=== PATIENT | male | born 1990 | race Caucasian/White ===

== ENCOUNTER 2020-07-05 10:18 | Observation (INO) | payer OTHER, SELFPAY ==
[2020-07-05] VITALS (25 sets, daily range): BP systolic 106–171; BP diastolic 55–99; PULSE 58–105; RESP 12–18; TEMP 36.1–37.1; O2SAT 90–100; BMI 49.4; BMI 47.9
--- NOTE | 2020-07-05 | PATH_ITS ---
[facility] Accession Number: [id number] . 01 Material submitted: . gallbladder - GALLBLADDER AND CONTENTS . 02 Diagnosis: Gallbladder, Cholecystectomy: Chronic cholecystitis with cholelithiasis. Negative for dysplasia and malignancy. V 07/08/2020 1001 Local . 02 Electronically signed: . Eladia Barrios MD, Pathologist NPI- [id number] . 01 Gross description: . The specimen is received in formalin, labeled gallbladder and consists of a 7.0 x 3.0 x 2.5 cm intact gallbladder containing green viscous bile with multiple lau, multifaceted choleliths ranging from 1.2 to 1.5 cm. The mucosa is velvety green and the wall thickness measures 0.2 cm. Garment Folder sections are submitted to include the en face cystic duct margin (blue) in cassette A1. ([id number]) /MRV 07/08/2020 1000 Local . 02 Pathologist provided ICD-10: K80.60 . 02 CPT . 820899 Performed at: 01 [facility] [address], [place], [place] [id number] MD Niraj Bach MD Phone: [phone] Performed at: 02 [facility] [address] [place], [place] [id number] MD Eladia Barrios MD Phone: [phone]
[2020-07-05 10:39] LABS: Add Manual Diff / Slide Review NO; Basophils Absolute Auto 100 /uL (0-100); Basophils Percent Auto 1.3 % (0-2); Eosinophils Absolute Auto 100 /uL (0-450); Eosinophils Percent Auto 1.6 % (2-4); Hematocrit 38.4 % (41-53); Hemoglobin 12.8 g/dL (13.5-17.5); Lymphocytes Absolute Auto 1700 /uL (1100-4500); Lymphocytes Percent Auto 19.8 % (25-40); Mean Corpuscular HGB Conc 33.3 % (30-36); Mean Corpuscular Hemoglobin 27.7 PG (26-34); Mean Corpuscular Volume 83.2 fL (80-100); Monocytes Absolute Auto 600 /uL (0-900); Monocytes Percent Auto 7.2 % (3-14); Neutrophils Absolute Auto 6200 /uL (1500-7000); Neutrophils Percent Auto 70.1 % (50-75); Platelet Count 211 X10^3/uL (150-400); Red Blood Cell Count 4.62 X10^6/uL (4.5-5.9); White Blood Cell Count 8.8 X10^3/uL (4.5-11.0)
--- NOTE | 2020-07-05 10:41 | ED.ABDPAIN ---
HPI - Abdominal Pain General Chief Complaint: Abdominal Pain Stated Complaint: stomach/gallbladder pain Time Seen by Provider: 07/05/20 10:22 Source: patient Mode of arrival: Ambulatory Limitations: no limitations History of Present Illness HPI narrative: Patient is a 29-year-old male who presents with right upper quadrant pain. He says he was diagnosed with gallstones a few years ago but nothing was done about them. He intermittently has pain however last night he had intense pain causing him to vomit. He continues to have pain and swelling over his right upper quadrant. He denies fever chills chest pain or shortness of breath. MD complaint: abdominal pain Pain Consistency: constant Location: RUQ Severity: moderate Quality: stabbing Radiation: none Migration to: no migration Relieving factors: nothing Related Data Home Medications Medication Instructions Recorded Confirmed No Known Home Medications 07/05/20 07/05/20 Allergies Allergy/AdvReac Type Severity Reaction Status Date / Time No Known Drug Allergies Allergy Verified 07/05/20 10:34 Review of Systems Review of Systems Narrative: GENERAL: Denies chills, fatigue, malaise, fever, sweats, travel HEENT: Denies sinus pain, ear pain, sore throat, difficulty swallowing, neck pain RESPIRATORY: Denies dyspnea, cough, wheezing, hemoptysis, sputum. CARDIOVASCULAR: Denies chest pain, palpitations, orthopnea, edema GASTROINTESTINAL: See HPI : Denies dysuria, frequency, incontinence, hematuria, urinary retention, flank pain. MUSCULOSKELETAL: Denies weakness, joint pain, or bony pain SKIN: No rash, no erythema, no pruritus NEUROLOGIC: Denies weakness, dizziness, headache, numbness, change in speech, confusion PSYCHIATRIC: No concerning psychosocial issues. 12 point review of systems is negative except for those stated above and HPI Patient History Medical History Cholelithiasis Social History household members: family Smoking Status: Never smoker alcohol intake: current Smoking Status: Never smoker alcohol intake frequency: 0-2 drinks per day Substance Use Type: marijuana Exam Initial Vital Signs Initial Vital Signs: Vital Signs Temperature 98.7 F 07/05/20 10:20 Pulse Rate 77 07/05/20 10:20 Respiratory Rate 18 07/05/20 10:20 Blood Pressure 171/81 H 07/05/20 10:20 Pulse Oximetry 99 07/05/20 10:20 GENERAL: Alert overweight 29-year-old male and in no acute distress. HEENT: Head atraumatic,EOMI, pupils reactive, face symmetric, moist mucous membranes CARDIOVASCULAR: Regular rate and rhythm without murmurs, rubs or gallops. RESPIRATORY: Breath sounds equal bilaterally, no wheezes rales or rhonchi. ABDOMEN: Soft, tender right upper quadrant positive Moise sign EXTREMITIES: Normal range of motion, no clubbing or edema. Neurovascularly intact NEUROLOGICAL: Alert and oriented x4.Normal gait and speech. SKIN: Warm, dry, no laceration, no petechiae, no rashes or lesions. 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) Stat Fentanyl (Fentanyl 100 Mcg/2 Ml Inj) 0 mcg IV Q5M PRN PRN Reason: Pain, Severe (7-10) Hydromorphone HCl (Hydromorphone 2 Mg Inj) 0 mg IV Q5M PRN PRN Reason: Pain, Moderate (4-6) Hydromorphone HCl (Hydromorphone 2 Mg Inj) 0 mg IV Q5MIN PRN PRN Reason: Pain, Mild (1-3) Sodium Chloride (Normal Saline 0.9%) 1,000 mls @ 150 mls/hr IV CONT JOHNNY Last Infusion: 07/05/20 12:49 Dose: 150 mls/hr Documented by: Admin: 07/05/20 12:27 Dose: 150 mls/hr Documented by: TASIA Lactated Ringer's (Lactated Ringers) 1,000 mls @ 42 mls/hr IV CONT JOHNNY Last Admin: 07/05/20 16:10 Dose: 42 mls/hr Documented by: ERIC Lorazepam (Lorazepam 2 Mg/Ml Inj) 0.25 mg IV NOW PRN PRN Reason: Anxiety Morphine Sulfate (Morphine 4 Mg/Ml Inj) 4 mg IV Q4HR PRN PRN Reason: Pain, Severe (7-10) Last Admin: 07/05/20 15:02 Dose: 4 mg Documented by: NEELA Non-Formulary Medication (Indocyanine Green) 25 mg IV PREOP JOHNNY Last Admin: 07/05/20 16:27 Dose: 5 mg Documented by: ERIC Ondansetron HCl (Ondansetron 4 Mg/2 Ml Inj) 4 mg IV NOW PRN PRN Reason: Nausea And Vomiting Oxycodone HCl (Oxycodone Ir 5 Mg Tablet) 5 mg PO PACUNOW PRN PRN Reason: Mild or moderate pain Discontinued Medications Acetaminophen (Acetaminophen 325 Mg Tablet) 975 mg PO NOW ONE Stop: 07/05/20 15:29 Last Admin: 07/05/20 15:58 Dose: 975 mg Documented by: ERIC Bupivacaine HCl/Epinephrine Bitart (Bupivacaine 0.25% W/ Epi (Pf) 10 Ml Vial) 30 ml INJ NOW ONE Stop: 07/05/20 17:45 Last Admin: 07/05/20 17:45 Dose: 30 ml Documented by: BENJAMIN Piperacillin/Tazobactam/Dextrose (Zosyn) 3.375 gm in 50 mls @ 100 mls/hr IV NOW ONE Stop: 07/05/20 12:45 Last Infusion: 07/05/20 13:12 Dose: 0 mls/hr Documented by: Infusion: 07/05/20 12:50 Dose: 100 mls/hr Documented by: Admin: 07/05/20 12:27 Dose: 100 mls/hr Documented by: TASIA Ketorolac Tromethamine (Ketorolac 60 Mg/2 Ml Vial) 30 mg IV NOW ONE Stop: 07/05/20 10:45 Last Admin: 07/05/20 11:18 Dose: 30 mg Documented by: TASIA Ondansetron HCl (Ondansetron 4 Mg/2 Ml Inj) 4 mg IV NOW ONE Stop: 07/05/20 10:32 Last Admin: 07/05/20 11:41 Dose: Not Given Documented by: TASIA Ondansetron HCl (Ondansetron 4 Mg/2 Ml Inj) 4 mg IV NOW ONE Stop: 07/05/20 10:45 Last Admin: 07/05/20 11:18 Dose: 4 mg Documented by: TASIA Vital Signs Vital signs: Vital Signs - 8 hr 07/05/20 10:20 07/05/20 10:41 07/05/20 11:00 Temperature 98.7 F Pulse Rate 77 75 65 Respiratory Rate 18 Blood Pressure 171/81 H Pulse Oximetry 99 99 99 07/05/20 11:23 07/05/20 11:30 07/05/20 12:00 Temperature Pulse Rate 77 73 86 Respiratory Rate Blood Pressure 115/57 L 106/55 L 109/56 L Pulse Oximetry 98 98 98 MDM - Abdominal Pain Lab Data Attestation: I reviewed the patient's lab results. Result diagrams: 07/05/20 10:30 07/05/20 10:30 Labs: Lab Results 07/05/20 07/05/20 07/05/20 Range/Units 10:30 10:30 10:30 WBC 8.8 (4.5-11.0) X10^3/uL RBC 4.62 (4.5-5.9) X10^6/uL Hgb 12.8 L (13.5-17.5) g/dL Hct 38.4 L (41-53) % MCV 83.2 (80-100) fL MCH 27.7 (26-34) PG MCHC 33.3 (30-36) % RDW 14.0 (11.6-14.8) % Plt Count 211 (150-400) X10^3/uL Neut % (Auto) 70.1 (50-75) % Lymph % (Auto) 19.8 L (25-40) % Granite % (Auto) 7.2 (3-14) % Eos % (Auto) 1.6 L (2-4) % Baso % (Auto) 1.3 (0-2) % Neut # (Auto) 6200 (4172-9329) /uL Lymph # (Auto) 1700 (0062-4141) /uL Granite # (Auto) 600 (0-900) /uL Eos # (Auto) 100 (0-450) /uL Baso # (Auto) 100 (0-100) /uL PT 11.6 (10.1-12.7) SECONDS INR 1.0 (0.9-1.3) APTT 37 H (26.4-36.2) SECONDS Sodium 139 (137-145) mmol/L Potassium 5.0 (3.4-5.1) mmol/L Chloride 107 (98-107) mmol/L Carbon Dioxide 22 (22-32) mmol/L BUN 8 L (9-20) mg/dL Creatinine 0.61 L (0.66-1.25) mg/dL Estimated GFR > 60.0 (>60) mL/min BUN/Creatinine Ratio 13.1 (6-22) Glucose 111 H (70-100) mg/dL Calcium 9.4 (8.4-10.2) mg/dL Total Bilirubin 0.4 (0.2-1.3) mg/dL AST 40 (17-59) IU/L ALT 44 (<50) IU/L Alkaline Phosphatase 63 (38-126) U/L Total Protein 7.9 (6.3-8.2) g/dL Albumin 4.6 (3.5-5.0) g/dL Globulin 3.3 (1.7-4.1) g/dL Albumin/Globulin Ratio 1.4 (1.0-2.8) Lipase 35 (23-300) U/L SARS-CoV-2 (PCR) (Negative) 07/05/20 Range/Units 12:28 WBC (4.5-11.0) X10^3/uL RBC (4.5-5.9) X10^6/uL Hgb (13.5-17.5) g/dL Hct (41-53) % MCV (80-100) fL MCH (26-34) PG MCHC (30-36) % RDW (11.6-14.8) % Plt Count (150-400) X10^3/uL Neut % (Auto) (50-75) % Lymph % (Auto) (25-40) % Granite % (Auto) (3-14) % Eos % (Auto) (2-4) % Baso % (Auto) (0-2) % Neut # (Auto) (9404-2316) /uL Lymph # (Auto) (2755-6422) /uL Granite # (Auto) (0-900) /uL Eos # (Auto) (0-450) /uL Baso # (Auto) (0-100) /uL PT (10.1-12.7) SECONDS INR (0.9-1.3) APTT (26.4-36.2) SECONDS Sodium (137-145) mmol/L Potassium (3.4-5.1) mmol/L Chloride (98-107) mmol/L Carbon Dioxide (22-32) mmol/L BUN (9-20) mg/dL Creatinine (0.66-1.25) mg/dL Estimated GFR (>60) mL/min BUN/Creatinine Ratio (6-22) Glucose (70-100) mg/dL Calcium (8.4-10.2) mg/dL Total Bilirubin (0.2-1.3) mg/dL AST (17-59) IU/L ALT (<50) IU/L Alkaline Phosphatase (38-126) U/L Total Protein (6.3-8.2) g/dL Albumin (3.5-5.0) g/dL Globulin (1.7-4.1) g/dL Albumin/Globulin Ratio (1.0-2.8) Lipase (23-300) U/L SARS-CoV-2 (PCR) Negative (Negative) Imaging Data Chest x-ray: Radiologist's Impression: PROCEDURE: XR CHEST 1V INDICATIONS: chest pain TECHNIQUE: One view of the chest was acquired. COMPARISON: [facility], US ABDOMEN LIMITED, 07/05/2020, 10:58. FINDINGS: Surgical changes and devices: None. Lungs and pleura: On this semiupright portable chest examination, no large pneumothorax or large pleural effusions are seen. No focal infiltrates are seen. Mediastinum: Mediastinal contours appear normal. Heart size is normal. Bones and chest wall: No suspicious bony lesions. Overlying soft tissues appear unremarkable. IMPRESSION: Portable chest within normal limits. Dictated by: Lior Miller M.D. on 07/05/2020 at 11:42 US - abdomen: Radiologist's Impression: PROCEDURE: US ABDOMEN LIMITED INDICATIONS: RIGHT UPPER QUADRANT PAIN TECHNIQUE: Real-time focused scanning was performed of the abdomen, with image documentation. COMPARISON: None. FINDINGS: The liver demonstrates prominent size. The liver demonstrates generalized prominently increased echogenicity. This decreases ultrasound sensitivity for detection of hepatic masses. Several mobile gallstones are seen, which measure up to 1.8 cm. The gallbladder wall is not thickened, measuring 3 mm or less. No specific pericholecystic fluid is seen. The sonographic Moise sign is positive. There is no biliary dilatation, the common bile duct measures 6-7 mm. The pancreas is not seen. This study is limited by body habitus. IMPRESSION: Several mobile gallstones are seen and there is a positive sonographic Moise sign. No additional sonographic signs of cholecystitis are seen. The biliary tree measures at the upper limits of normal. Prominent fatty liver infiltration. Dictated by: Lior Miller M.D. on 07/05/2020 at 10:21 ECG Data Attestation: I personally reviewed and interpreted this ECG as follows: Interpretation: Normal sinus rhythm rate 55 p.r. interval 146 QRS 90 QTC 380 MDM Narrative Medical decision making narrative: 12:15 Dr. Crisostomo, accepts patient. Keep NPO. Zosyn. Discharge Plan Departure Patient Disposition: Admitted as Observation Clinical Impression: Cholelithiasis Qualifiers: Cholelithiasis location: gallbladder Cholecystitis presence: without cholecystitis Biliary obstruction: without biliary obstruction Qualified Code(s): K80.20 - Calculus of gallbladder without cholecystitis without obstruction Admit Date/Time: 07/05/20 12:28 Admit Provider: Susana Crisostomo
--- NOTE | 2020-07-05 10:44 | DI.US.S_ITS ---
PROCEDURE: US ABDOMEN LIMITED INDICATIONS: RIGHT UPPER QUADRANT PAIN TECHNIQUE: Real-time focused scanning was performed of the abdomen, with image documentation. COMPARISON: None. FINDINGS: The liver demonstrates prominent size. The liver demonstrates generalized prominently increased echogenicity. This decreases ultrasound sensitivity for detection of hepatic masses. Several mobile gallstones are seen, which measure up to 1.8 cm. The gallbladder wall is not thickened, measuring 3 mm or less. No specific pericholecystic fluid is seen. The sonographic Moise sign is positive. There is no biliary dilatation, the common bile duct measures 6-7 mm. The pancreas is not seen. This study is limited by body habitus. IMPRESSION: Several mobile gallstones are seen and there is a positive sonographic Moise sign. No additional sonographic signs of cholecystitis are seen. The biliary tree measures at the upper limits of normal. Prominent fatty liver infiltration. Dictated by: Lior Miller M.D. on 07/05/2020 at 10:21 Approved by: Lior Miller M.D. on 07/05/2020 at 10:23
[2020-07-05 10:47] LABS: Prothrombin Time 11.6 SECONDS (10.1-12.7)
[2020-07-05 10:49] LABS: PTT Partial Thromboplastin Tim 37 SECONDS (26.4-36.2)
[2020-07-05 10:55] LABS: Alanine Aminotransferase 44 IU/L (<50); Albumin 4.6 g/dL (3.5-5.0); Albumin Globulin Ratio 1.4 (1.0-2.8); Alkaline Phosphatase 63 U/L (38-126); Aspartate Aminotransferase 40 IU/L (17-59); BUN Creatinine Ratio 13.1 (6-22); Bilirubin Total 0.4 mg/dL (0.2-1.3); Blood Urea Nitrogen 8 mg/dL (9-20); Calcium 9.4 mg/dL (8.4-10.2); Carbon Dioxide 22 mmol/L (22-32); Chloride 107 mmol/L (98-107); Estimated Glomerular Filt Rate > 60.0 mL/min (>60); Globulin 3.3 g/dL (1.7-4.1); Glucose 111 mg/dL (70-100); Lipase 35 U/L (23-300); Sodium 139 mmol/L (137-145); Total Protein 7.9 g/dL (6.3-8.2)
[2020-07-05 11:06] LABS: HEMOLYSIS 85 (0-50)
[2020-07-05] MEDS: ONDANSETRON 4 MG/2 ML INJ IV ×3 (11:18→20:41)
[2020-07-05] MEDS: KETOROLAC 60 MG/2 ML VIAL 30 MG IV (11:18)
--- NOTE | 2020-07-05 12:15 | DI.RAD.S_ITS ---
PROCEDURE: XR CHEST 1V INDICATIONS: chest pain TECHNIQUE: One view of the chest was acquired. COMPARISON: [facility], , ABDOMEN LIMITED, 07/05/2020, 10:58. FINDINGS: Surgical changes and devices: None. Lungs and pleura: On this semiupright portable chest examination, no large pneumothorax or large pleural effusions are seen. No focal infiltrates are seen. Mediastinum: Mediastinal contours appear normal. Heart size is normal. Bones and chest wall: No suspicious bony lesions. Overlying soft tissues appear unremarkable. IMPRESSION: Portable chest within normal limits. Dictated by: Lior Miller M.D. on 07/05/2020 at 11:42 Approved by: Lior Miller M.D. on 07/05/2020 at 11:43
[2020-07-05] MEDS: SODIUM CHLORIDE 0.9% 1,000 ML 150 ML IV (12:27)
[2020-07-05] MEDS: PIPERACILLIN-TAZO 3.375 GM/50 ML FROZ.PIGGY IV ×2 (12:27→18:46)
[2020-07-05 13:27] LABS: COVID19 - ADMIT (NP swab/PCR) Negative (Negative)
--- NOTE | 2020-07-05 13:56 | PC.NURSE ---
Patient alert oriented rates abdominal pain 6/10, mild nausea, no emesis. Oriented to room and call light.
--- NOTE | 2020-07-05 14:07 | PM.HP.1 ---
History of Present Illness History of Present Illness Date Patient Seen: 07/05/20 Time Patient Seen: 14:23 Chief complaint: stomach/gallbladder pain Narrative: This is a 29-year-old man with severe morbid obesity (BMI 48), who denies any other medical history. He says that he has had multiple episodes of severe right upper quadrant pain, usually self-limited, but sometimes requiring a trip to the ER. He has had ultrasounds in the past and knows he has gallstones. On this event, his right upper quadrant pain began after eating last night, and has not relented. He came into the ER had a right upper quadrant ultrasound which showed mobile gallstones, and no wall thickening or pericholecystic fluid. He has a normal white count with no left shift. His LFTs are normal. He denies any jaundice with any prior episodes, but says he has sometimes had fevers with these episodes. ROS: Right upper quadrant pain, radiating to the right upper back, denies nausea, denies fevers, denies jaundice, denies dysuria. Denies chest pain or shortness of breath. He does report some chest discomfort and shortness of breath with exertion. Thirteen system review is otherwise negative other than as mentioned below and in HPI. PE: GENERAL: Alert, comfortable, morbidly obese. Appears stated age. Answers questions promptly and appropriately. Vital signs noted. HENT: Normocephalic, atraumatic. Hearing intact. EYES: Conjunctiva pink, sclera white, no periorbital swelling. CARDIOVASCULAR: Regular rate. No pedal edema. RESPIRATORY: Non-tachypneic, breathing comfortably on room air. GASTROINTESTINAL: Abdomen soft and non-distended, obese, tender to palpation in the right upper quadrant GENITALURINARY: No flank tenderness. MUSCULOSKELETAL: Equal tone and mass bilaterally. SKIN: Warm, dry, soft, appropriate color for ethnicity. No other lesions, rashes, or wounds. NEURO: Alert and Oriented X 3. No gross sensory deficits, or cognitive issues. PSYCH: Appropriate affect and mood. Patient History Medical History Cholelithiasis Family & Social History Social History: household members family Prior Living Arrangements Apartment/Condo Safety & Behavioral: Feels Safe in Current Yes Environment Been Physically Hurt or No Threatened By a Person Suicidal Ideation Description None Suicide Plan Description No Plan Tobacco & Substance use: Smoking Status Never smoker alcohol intake current alcohol intake frequency holiday/special occasion Substance Use Type marijuana Meds Home Medications and Allergies Home Medications Medication Instructions Recorded Confirmed Type No Known Home Medications 07/05/20 07/05/20 History Allergies Allergy/AdvReac Type Severity Reaction Status Date / Time No Known Drug Allergies Allergy Verified 07/05/20 10:34 Exam Vital Signs (past 8 hours): - 07/05/20 10:20 07/05/20 10:41 07/05/20 11:00 Temperature 98.7 F Pulse Rate 77 75 65 Respiratory Rate 18 Blood Pressure 171/81 H Pulse Oximetry 99 99 99 07/05/20 11:23 07/05/20 11:30 07/05/20 12:00 Temperature Pulse Rate 77 73 86 Respiratory Rate Blood Pressure 115/57 L 106/55 L 109/56 L Pulse Oximetry 98 98 98 07/05/20 12:30 07/05/20 12:31 07/05/20 13:00 Temperature 97.7 F Pulse Rate 61 79 58 L Respiratory Rate 16 Blood Pressure 125/73 137/83 Pulse Oximetry 100 100 100 Oxygen Delivery Method Room Air Oxygen Flow Rate 0 Objective Imaging US - abdomen: Radiologist's impression: Right upper quadrant ultrasound: [address] [place] [id number] ReportSigned Patient: Domo Thompson Jr [facility]#: [id number]: 1990Acct:[id number]/Sex: 29 / MDate of Service: 07/05/20Loc: EDAccession Number: [id number] Procedure: US abdomen limited Ordering Provider: Lynn Hare D.O. PROCEDURE: US ABDOMEN LIMITED INDICATIONS: RIGHT UPPER QUADRANT PAIN TECHNIQUE: Real-time focused scanning was performed of the abdomen, with image documentation. COMPARISON: None. FINDINGS: The liver demonstrates prominent size. The liver demonstrates generalized prominently increased echogenicity. This decreases ultrasound sensitivity for detection of hepatic masses. Several mobile gallstones are seen, which measure up to 1.8 cm. The gallbladder wall is not thickened, measuring 3 mm or less. No specific pericholecystic fluid is seen. The sonographic Moise sign is positive. There is no biliary dilatation, the common bile duct measures 6-7 mm. The pancreas is not seen. This study is limited by body habitus. IMPRESSION: Several mobile gallstones are seen and there is a positive sonographic Moise sign. No additional sonographic signs of cholecystitis are seen. The biliary tree measures at the upper limits of normal. Prominent fatty liver infiltration. Labs Result Diagrams: 07/05/20 10:30 07/05/20 10:30 Labs: Laboratory Results - last 24 hr 07/05/20 07/05/20 07/05/20 10:30 10:30 10:30 WBC 8.8 RBC 4.62 Hgb 12.8 L Hct 38.4 L MCV 83.2 MCH 27.7 MCHC 33.3 RDW 14.0 Plt Count 211 Neut % (Auto) 70.1 Lymph % (Auto) 19.8 L Sevier % (Auto) 7.2 Eos % (Auto) 1.6 L Baso % (Auto) 1.3 Neut # (Auto) 6200 Lymph # (Auto) 1700 Sevier # (Auto) 600 Eos # (Auto) 100 Baso # (Auto) 100 PT 11.6 INR 1.0 APTT 37 H Sodium 139 Potassium 5.0 Chloride 107 Carbon Dioxide 22 BUN 8 L Creatinine 0.61 L Estimated GFR > 60.0 BUN/Creatinine Ratio 13.1 Glucose 111 H Calcium 9.4 Total Bilirubin 0.4 AST 40 ALT 44 Alkaline Phosphatase 63 Total Protein 7.9 Albumin 4.6 Globulin 3.3 Albumin/Globulin Ratio 1.4 Lipase 35 SARS-CoV-2 (PCR) 07/05/20 12:28 WBC RBC Hgb Hct MCV MCH MCHC RDW Plt Count Neut % (Auto) Lymph % (Auto) Sevier % (Auto) Eos % (Auto) Baso % (Auto) Neut # (Auto) Lymph # (Auto) Sevier # (Auto) Eos # (Auto) Baso # (Auto) PT INR APTT Sodium Potassium Chloride Carbon Dioxide BUN Creatinine Estimated GFR BUN/Creatinine Ratio Glucose Calcium Total Bilirubin AST ALT Alkaline Phosphatase Total Protein Albumin Globulin Albumin/Globulin Ratio Lipase SARS-CoV-2 (PCR) Negative Assessment & Plan Assessment and plan (1) Morbid obesity with BMI of 45.0-49.9, adult: Status: Acute (2) Cholelithiasis: Qualifiers: Biliary obstruction: without biliary obstruction Cholecystitis presence: without cholecystitis Cholelithiasis location: gallbladder Qualified Code(s): K80.20 - Calculus of gallbladder without cholecystitis without obstruction Status: Acute Assessment & Plan narrative: This is a 29-year-old man with intractable biliary colic, with severe right upper quadrant pain on controlled by pain medication. Have discussed with him the risk of laparoscopic possible open cholecystectomy, and the added risk due to his severe morbid obesity. I explained to him that there is a higher risk of wound infection, difficult access during surgery, need for open surgery, need for drain placement. Risk of bleeding, infection, damage to nearby structures, need for additional procedures, bile leak, bile duct injury, need for transfer to a tertiary center were discussed with the patient. The patient desires to proceed with surgery. Plan Zosyn NPO, IV fluids, IV pain Laparoscopic possible open cholecystectomy COVID-19 COVID-19 status: Negative Result date/Date tested (Pos, Neg/Pending): 07/05/20 Time Spent With Patient Time with patient: Greater than 35 minutes Quality MIPS - Admit Advanced Care Plan / Current Medications Measures: #47 ? Advanced Care Plan Clinician documentation instruction: document at admission. [] I confirmed that the patient's Advance Care Plan is present, code status is documented, or surrogate decision maker is listed in the patient?s medical record. [SATISFIES MIPS PERFORMANCE] If Yes, Stop Here [] The patient?s Advance Care plan is not present because: (select) [MIPS PERFORMANCE EXCEPTION/EXCLUSION] [] I confirmed today that the patient does not wish or was not able to name a surrogate decision maker or provide an Advance Care Plan. [] Hospice care is currently being provided or has been provided this calendar year [] I did NOT confirm today the presence of an Advance Care Plan or surrogate decision maker documented within the patient's medical record. [DOES NOT SATISFY MIPS PERFORMANCE] #130 - Documentation of Current Medications in the Medical Record Clinician documentation instruction: use macro the first time you see a patient. [] I have utilized all available immediate resources to obtain, update, or review the patient?s current medications. [SATISFIES MIPS PERFORMANCE] If Yes, Stop Here [] The patient is not eligible for medication reconciliation; the patient is in an emergent medical situation where delaying treatment would jeopardize the patient?s health. [MIPS PERFORMANCE EXCEPTION/EXCLUSION] [] I did NOT confirm, update or review the patient's current list of medications today. [DOES NOT SATISFY MIPS PERFORMANCE] MIPS - CL Central Venous Catheter Placement Measure: #76 ? Prevention of Central Venous Catheter (CVC) ? Related Bloodstream Infection Clinician documentation instruction: use macro every time you place a central line. [] All elements of Maximal Sterile Barrier Technique, including hand hygiene, skin prep, and sterile ultrasound technique (if used) were followed. [SATISFIES MIPS PERFORMANCE] If Yes, Stop Here [] If ?No?, the medical reason all elements were NOT used for medical reason [] (ex. emergent condition). [] Maximal Sterile Barrier Technique was not followed, no reason provided [DOES NOT SATISFY MIPS PERFORMANCE] MIPS - DC Heart Failure Measures: #5 - Heart Failure (HF): Angiotensin-Converting Enzyme (LUIS) Inhibitor or Angiotensin Receptor Priscila (ARB) Therapy for Left Ventricular Systolic Dysfunction (LVSD) and #8 - Heart Failure (HF): Beta-Priscila Therapy for Left Ventricular Systolic Dysfunction (LVSD) Clinician documentation instruction: use macro at every CHF discharge. [] The patient has current or prior documentation of left ventricular ejection fraction (LVEF) less than 40%, or moderate or severely depressed left ventricular systolic function. Answer both: [SATISFIES MIPS PERFORMANCE] [] The patient was prescribed or already taking an Angiotensin-Converting Enzyme (LUIS) Inhibitor, or Angiotensin Receptor Priscila (ARB). [] The patient was prescribed or already taking a beta-priscila. If Yes to Both, Stop Here [] Patient not prescribed/taking: [MIPS PERFORMANCE EXCEPTION/EXCLUSION] [] LUIS or ARB for medical/patient/system reason(s) including [] (ex. allergy, intolerance, contraindication) [] Beta-priscila for medical/patient/system reason(s) including [] (ex. allergy, intolerance, contraindication) [] Patient not prescribed/taking: [DOES NOT SATISFY MIPS PERFORMANCE] [] LUIS or ARB, no reason given [] Beta-priscila, no reason given
[2020-07-05] MEDS: MORPHINE 4 MG/ML INJ IV (15:02)
[2020-07-05] MEDS: ACETAMINOPHEN 325 MG TABLET 975 MG PO (15:58)
[2020-07-05] MEDS: LACTATED RINGERS 1,000 ML 42 ML IV ×2 (16:10→18:21)
[2020-07-05 16:23] LABS: Bacteria Urine None Seen; RBC Urine None Seen (0-5/HPF)
[2020-07-05 16:26] LABS: Appearance Urine UA CLEAR; Bilirubin Urine UA NEGATIVE (NEGATIVE); Color Urine UA YELLOW; Glucose Urine UA NEGATIVE (Negative); Ketones Urine UA NEGATIVE (NEGATIVE); Leukocyte Esterase Urine UA NEGATIVE (NEGATIVE); Nitrite Urine UA NEGATIVE (Negative); Occult Blood Urine UA NEGATIVE (Negative); Protein Urine UA NEGATIVE (Negative); Specific Gravity Urine UA 1.025 (1.000-1.035); Urobilinogen Urine UA 0.2 E.U./dL (0.2)
[2020-07-05] MEDS: Non-Formulary Medication (Indocyanine Green 25 MG) 25 EACH IV (16:27)
[2020-07-05 16:34] LABS: Amorphous Sediment Urine 1+; Culture Indicated Urine Cult Not Indicated; Mucus Urine 1+ (Negative); Squamous Epithelial Cell Urine 1-5 /HPF (0-5/HPF); WBC Urine 0-1/HPF (0-5/HPF)
--- NOTE | 2020-07-05 17:22 | SUR.OPER ---
Supine on padded OR bed, head on pillow, safety belt at thigh, left arm padded and tucked at side. Right arm secured on padded arm oard <90 degrees abduction. Legs uncrossed. Padded footboard in place. Tape over blanket to secure lower legs.
[2020-07-05] MEDS: BUPIVACAINE 0.25% W/ EPI (PF) 10 ML VIAL 30 ML INJ (17:45)
--- NOTE | 2020-07-05 19:04 | P.OP_ITS ---
Operative Date/Time/Diagnoses Date of procedure: 07/05/20 Time of procedure: 19:04 Pre-op diagnosis: acute cholecystitis, biliary colic, intractable abdominal pain Post-op diagnosis: same (acute on chronic cholecystitis, gall stones; deeply intrahepatic gall bladder) Procedure & Clinicians Procedure: Laparoscopic cholecystectomy Indocyanine green cholangiography Modifier 22 for deeply intrahepatic gall bladder, resulting in extended operative time and increased complexity Same procedure as scheduled: Yes Indications: Symptomatic cholelithiasis, intractable biliary colic Surgeon: Susana Crisostomo Click Yes if Unassisted: Yes Anesthesia Type: General Operative Notes Findings: Thickend gall bladder, large gall stones, deeply intrahepatic gall bladder Specimen(s): other (gall bladder and contents) Applied: drain(s) Estimated Blood Loss (mL): 50 Procedure in detail: The patient was brought into the operating room and placed supine on the OR table. Sequential compression devices were placed on both legs and turned on. Appropriate perioperative antibiotics were given prior to the start of surgery. General anesthesia was induced the patient was intubated. The abdomen was prepped and draped in sterile fashion. Surgical time-out was conducted. Local anesthetic was injected under the skin just superior to the umbilicus and a 5 mm vertical incision was made at this site. The umbilical stalk was grasped with a Becky and elevated. A Veress needle was passed throu gh the fascia into proper position. The position was tested with a saline drop test which was appropriate for intra-abdominal Veress needle placement. The abdomen was then insufflated in the usual fashion. Once insufflated to 15 mm Hg the Veress needle was removed and a 5 mm optical trocar was placed under direct vision using a 5 mm 30 degree scope. Once the camera was inside the abdomen I took a look around. There was no injury from port placement. Two additional ports were placed in a similar fashion in the right upper quadrant and a 10 mm port was placed in the epigastrium. Through the 2 lateral ports the gallbladder was grasped and elevated and the infundibulum was retracted laterally to the patient's right. The gall bladder was deeply intra-hepatic. Through positioning, access to the gall bladder hilum was not achievable due to the deeply intrahepatic position of the gall bladder. The liver was very fatty and heavy. Lifting the liver away from the gall bladder was difficult with high risk of injury to the liver. The decision was made to take the gall bladder from the top down. A Raytec was placed into the abdomen and it was used to protect the anterior edge of the liver while retracting upwards on the liver. L-hook cautery was used to open the peritoneum and to begin dividing the gall bladder fundus from the liver beginning at its most superior extent, and carefully dissecting down along the posterior surface of the gall bladder in the plane between the gall bladder and the liver. Several penetrating vessels were encountered and were controlled with clips and cautery. This part of the procedure added over 45 minutes to the operation, due to patient anatomy. Modifier 22 should be included in the coding for this case due to increased operative time, and increased level of skill and difficulty required to complete this part of the operation safely. Once the gall bladder was freed from the liver surface, I again lifted the gall bladder and attempted to retract the infundibulum laterally again and to see the hilum. At this point, I was able to get the gall bladder away from the liver enough to address the cystic duct and artery. There was thick fatty tissue on the surface of the infundibulum and cystic structures. These were carefully taken down with hook cautery. Indocyanine green cholangiography was used to identify the cystic duct and common bile duct. Both were clearly identified, and the common bile duct was seen well away from the area of dissection. [place] dissector and right angle were used to dissect out the cystic duct and artery. Once the cystic duct and artery were completely dissected out I was able to see liver behind and between both structures without any other structures in the way, giving us the critical view of safety. I again checked the view using ICG and was able to identify the anterior structure as the cytic duct. At this point I triply clipped both structures on the patient's side and put a single clip on the gallbladder side of both the cystic duct and artery. Both structures were then divided with laparoscopic Meseret. The few remaining adhesions were taken down with hook cautery. Following this the gallbladder was free from the liver. It was placed inside an Endo-Catch bag and removed through the epigastric port site. Due to the thickness of the abdominal wall (about 8cm thick), and the large stones within the gall bladder, I had to signficantly enlarge the epigastric port site in order to get the gallbladder out. Once it was out and passed off to the back table I then took another look inside the abdomen. I irrigated and inspected the gall bladder hilum for hemostasis. An additional clip was applied to an oozing vessel in the gall bladder hilum, and surgicel was used to achieve good hemostasis I suctioned clean any remaining blood or fluid on the lateral side of the liver and in the subhepatic space. The Raytec was removed. There was no active bleeding or leaking of bile from the gallbladder fossa or from the clipped stumps of the cystic duct and artery. A 19 round roge drain was placed through the lateral port site and positioned in an infrahepatic po sition. At this point an O vicryl on a [employer] suture passer was used to close the epigastric port site in the fascia with multiple sutures. Insufflation was then removed from the abdomen. Additional local anesthetic was given at the epigastric site. A 3-0 Vicryl was used to close the subcutaneous layers, and skin sachin were used to close the skin. Additional local anesthetic was infiltrated into each port site. Each other port site was closed with 4-0 Monocryl, and sealed with Dermabond. This concluded the procedure. At this point the needle, sponge, and instrument counts were correct. The gallbladder was passed off the table for pathology. Patient was awakened from anesthesia and extubated. He was transferred to the postanesthesia care unit in stable condition. Complications: none Post-operative Condition: stable Disposition: PACU
--- NOTE | 2020-07-05 19:37 | SUR.PHASEI ---
received to PACU after general anesthesia. Oral airway in place. No further airway support required. Report from AMBROCIO Garcia and Dr Allan. 1915 - Oral airway out. No resp distress noted. 1939 - Pt diaphoretic. c/o nausea. Zofran given as noted. IVF increased. Ice pack placed behind neck. 1950 _ Pt states nausea much better. Remains diaphoretic. VSS. Denies pain.
--- NOTE | 2020-07-05 20:00 | SUR.PHASEI ---
1944 - Receiving RN in with another pt. Will wait to give report.
[2020-07-05] MEDS: HYDROMORPHONE 1 MG INJ 0.5 MG IV (20:41)
--- NOTE | 2020-07-05 21:45 | PC.NURSE ---
Shift note: Patient returned to floor around 2019, dressing to upper abdomen CDI, 2 incisions dermabonded and OIL FURNACE INSTALLER, MAHI drain with gauze dressing CDI . Patient c/o nausea with emesis, bile in color, medicated per JUN. Oriented to room, call light in reach and uses appropriately.
[2020-07-05] MEDS: ACETAMINOPHEN 325 MG TABLET 650 MG PO (23:54)
[2020-07-06] VITALS (8 sets, daily range): BP systolic 133–151; BP diastolic 54–90; PULSE 65–94; RESP 15–20; TEMP 36.2–37; O2SAT 94–98
[2020-07-06] MEDS: SODIUM CHLORIDE 0.9% FLUSH 10 ML IV ×3 (01:07→20:32)
[2020-07-06] MEDS: HYDROMORPHONE 0.5 MG INJ IV ×3 (01:07→20:32)
[2020-07-06] MEDS: OXYCODONE IR 5 MG TABLET PO (05:14)
[2020-07-06] MEDS: ACETAMINOPHEN 325 MG TABLET 650 MG PO ×4 (05:15→23:27)
[2020-07-06 05:31] LABS: Add Manual Diff / Slide Review NO; Basophils Absolute Auto 100 /uL (0-100); Basophils Percent Auto 0.7 % (0-2); Eosinophils Absolute Auto 0 /uL (0-450); Hematocrit 38.1 % (41-53); Hemoglobin 12.6 g/dL (13.5-17.5); Lymphocytes Absolute Auto 1000 /uL (1100-4500); Lymphocytes Percent Auto 7.6 % (25-40); Mean Corpuscular Hemoglobin 27.8 PG (26-34); Monocytes Absolute Auto 300 /uL (0-900); Monocytes Percent Auto 2.7 % (3-14); Neutrophils Absolute Auto 11200 /uL (1500-7000); Platelet Count 228 X10^3/uL (150-400); Red Blood Cell Count 4.54 X10^6/uL (4.5-5.9); Red Cell Distribution Width 13.9 % (11.6-14.8); White Blood Cell Count 12.6 X10^3/uL (4.5-11.0)
[2020-07-06 05:37] LABS: Alanine Aminotransferase 70 IU/L (<50); Albumin 4.4 g/dL (3.5-5.0); Albumin Globulin Ratio 1.5 (1.0-2.8); Alkaline Phosphatase 62 U/L (38-126); Aspartate Aminotransferase 54 IU/L (17-59); BUN Creatinine Ratio 15.2 (6-22); Bilirubin Total 0.5 mg/dL (0.2-1.3); Blood Urea Nitrogen 10 mg/dL (9-20); Carbon Dioxide 23 mmol/L (22-32); Chloride 104 mmol/L (98-107); Estimated Glomerular Filt Rate > 60.0 mL/min (>60); Glucose 140 mg/dL (70-100); HEMOLYSIS < 15 (0-50); Sodium 138 mmol/L (137-145); Total Protein 7.4 g/dL (6.3-8.2)
[2020-07-06] MEDS: ONDANSETRON 4 MG/2 ML INJ IV (07:45)
[2020-07-06] MEDS: HEPARIN 5,000 UNIT/ML VIAL 5000 UNIT SUBCUT ×2 (09:06→22:40)
--- NOTE | 2020-07-06 10:39 | P.PN_ITS ---
Subjective Subjective Date Patient Seen: 07/06/20 Time Patient Seen: 11:41 Interval history: Patient having a significant amount of pain, has not been able to ambulate well without being limited by pain. Complains of diaphoresis. Was able tolerate food, without nausea or vomiting. Exam Vital Signs (past 8 hours): - 07/06/20 05:20 07/06/20 06:03 07/06/20 07:37 Temperature 97.8 F 97.7 F Pulse Rate 73 94 H Respiratory Rate 18 15 Blood Pressure 136/81 136/81 Pulse Oximetry 94 94 94 07/06/20 09:00 Temperature Pulse Rate 75 Respiratory Rate 18 Blood Pressure Pulse Oximetry 98 Oxygen Delivery Method Room Air Oxygen Flow Rate 0 Narrative Exam Narrative: GENERAL: Morbidly obese. Alert, mild distress due to pain and diaphoresis CARDIOVASCULAR: Regular rate. No pedal edema. RESPIRATORY: Non-tachypneic, breathing comfortably on room air. GASTROINTESTINAL: Abdomen soft and non-distended; appropriately tender to palpation; MAHI drain with serosanguineous output GENITALURINARY: No flank tenderness. MUSCULOSKELETAL: Equal tone and mass bilaterally. NEURO: Alert and Oriented X 3. No gross sensory deficits, or cognitive issues. PSYCH: Appropriate affect and mood. Objective Labs Result Diagrams: 07/06/20 05:10 07/06/20 05:10 Labs: Laboratory Results - last 24 hr 07/05/20 07/05/20 07/05/20 10:30 10:30 10:30 WBC 8.8 RBC 4.62 Hgb 12.8 L Hct 38.4 L MCV 83.2 MCH 27.7 MCHC 33.3 RDW 14.0 Plt Count 211 Neut % (Auto) 70.1 Lymph % (Auto) 19.8 L [place] % (Auto) 7.2 Eos % (Auto) 1.6 L Baso % (Auto) 1.3 Neut # (Auto) 6200 Lymph # (Auto) 1700 [place] # (Auto) 600 Eos # (Auto) 100 Baso # (Auto) 100 PT 11.6 INR 1.0 APTT 37 H Sodium 139 Potassium 5.0 Chloride 107 Carbon Dioxide 22 BUN 8 L Creatinine 0.61 L Estimated GFR > 60.0 BUN/Creatinine Ratio 13.1 Glucose 111 H Calcium 9.4 Total Bilirubin 0.4 AST 40 ALT 44 Alkaline Phosphatase 63 Total Protein 7.9 Albumin 4.6 Globulin 3.3 Albumin/Globulin Ratio 1.4 Lipase 35 Urine Color Urine Appearance Urine pH Ur Specific [place] Urine Protein Urine Glucose (UA) Urine Ketones Urine Occult Blood Urine Nitrate Urine Bilirubin Urine Urobilinogen Ur Leukocyte Esterase Urine RBC Urine WBC Ur Squamous Epith Cells Amorphous Sediment Urine Bacteria Urine Mucus Ur Culture Indicated? Nasal Screen MRSA (PCR) SARS-CoV-2 (PCR) 07/05/20 07/05/20 07/05/20 12:28 13:15 16:15 WBC RBC Hgb Hct MCV MCH MCHC RDW Plt Count Neut % (Auto) Lymph % (Auto) [place] % (Auto) Eos % (Auto) Baso % (Auto) Neut # (Auto) Lymph # (Auto) [place] # (Auto) Eos # (Auto) Baso # (Auto) PT INR APTT Sodium Potassium Chloride Carbon Dioxide BUN Creatinine Estimated GFR BUN/Creatinine Ratio Glucose Calcium Total Bilirubin AST ALT Alkaline Phosphatase Total Protein Albumin Globulin Albumin/Globulin Ratio Lipase Urine Color Yellow Urine Appearance Clear Urine pH 6.0 Ur Specific [place] 1.025 Urine Protein Negative Urine Glucose (UA) Negative Urine Ketones Negative Urine Occult Blood Negative Urine Nitrate Negative Urine Bilirubin Negative Urine Urobilinogen 0.2 Ur Leukocyte Esterase Negative Urine RBC None seen Urine WBC 0-1/hpf Ur Squamous Epith Cells 1-5 /hpf Amorphous Sediment 1+ Urine Bacteria None seen Urine Mucus 1+ H Ur Culture Indicated? Cult not indicated Nasal Screen MRSA (PCR) Negative for mrsa SARS-CoV-2 (PCR) Negative 07/06/20 07/06/20 05:10 05:10 WBC 12.6 H RBC 4.54 Hgb 12.6 L Hct 38.1 L MCV 84.0 MCH 27.8 MCHC 33.0 RDW 13.9 Plt Count 228 Neut % (Auto) 89.0 H Lymph % (Auto) 7.6 L [place] % (Auto) 2.7 L Eos % (Auto) 0.0 L Baso % (Auto) 0.7 Neut # (Auto) 36356 H Lymph # (Auto) 1000 L [place] # (Auto) 300 Eos # (Auto) 0 Baso # (Auto) 100 PT INR APTT Sodium 138 Potassium 5.0 Chloride 104 Carbon Dioxide 23 BUN 10 Creatinine 0.66 Estimated GFR > 60.0 BUN/Creatinine Ratio 15.2 Glucose 140 H Calcium 9.0 Total Bilirubin 0.5 AST 54 ALT 70 H Alkaline Phosphatase 62 Total Protein 7.4 Albumin 4.4 Globulin 3.0 Albumin/Globulin Ratio 1.5 Lipase Urine Color Urine Appearance Urine pH Ur Specific [place] Urine Protein Urine Glucose (UA) Urine Ketones Urine Occult Blood Urine Nitrate Urine Bilirubin Urine Urobilinogen Ur Leukocyte Esterase Urine RBC Urine WBC Ur Squamous Epith Cells Amorphous Sediment Urine Bacteria Urine Mucus Ur Culture Indicated? Nasal Screen MRSA (PCR) SARS-CoV-2 (PCR) [facility] Medical History Cholelithiasis Social History household members: family Smoking Status: Never smoker alcohol intake: current Assessment & Plan Assessment and plan (1) Morbid obesity with BMI of 45.0-49.9, adult: Status: Acute (2) Cholelithiasis: Qualifiers: Biliary obstruction: without biliary obstruction Cholecystitis presence: without cholecystitis Cholelithiasis location: gallbladder Qualified Code(s): K80.20 - Calculus of gallbladder without cholecystitis without obstruction Status: Acute (3) Status post cholecystectomy: Status: Acute Assessment & Plan narrative: This is a 29-year-old man who is postop day 1 from a difficult cholecystectomy, with a deeply intrahepatic gallbladder. He is still having some significant pain, and difficulty with ambulation due to pain. Plan: Ambulate as tolerated Pain control p.o. and IV pain med Dispo planning pending patient is able to ambulate well, and pain is controlled with p.o. pain meds COVID-19 COVID-19 status: Negative Result date/Date tested (Pos, Neg/Pending): 07/05/20 Time Spent With Patient Time with patient: 15-24 minutes Quality VTE Deep Vein Thrombosis/Pulmonary Embolism Present on Admission: No MIPS - Admit Advanced Care Plan / Current Medications Measures: #47 ? Advanced Care Plan Clinician documentation instruction: document at admission. [] I confirmed that the patient's Advance Care Plan is present, code status is documented, or surrogate decision maker is listed in the patient?s medical record. [SATISFIES [facility] PERFORMANCE] If Yes, Stop Here [] The patient?s Advance Care plan is not present because: (select) [MIPS PERFORMANCE EXCEPTION/EXCLUSION] [] I confirmed today that the patient does not wish or was not able to name a surrogate decision maker or provide an Advance Care Plan. [] Hospice care is currently being provided or has been provided this calendar year [] I did NOT confirm today the presence of an Advance Care Plan or surrogate decision maker documented within the patient's medical record. [DOES NOT SATISFY MIPS PERFORMANCE] #130 - Documentation of Current Medications in the Medical Record Clinician documentation instruction: use macro the first time you see a patient. [] I have utilized all available immediate resources to obtain, update, or review the patient?s current medications. [SATISFIES MIPS PERFORMANCE] If Yes, Stop Here [] The patient is not eligible for medication reconciliation; the patient is in an emergent medical situation where delaying treatment would jeopardize the patient?s health. [MIPS PERFORMANCE EXCEPTION/EXCLUSION] [] I did NOT confirm, update or review the patient's current list of medications today. [DOES NOT SATISFY MIPS PERFORMANCE] MIPS - CL Central Venous Catheter Placement Measure: #76 ? Prevention of Central Venous Catheter (CVC) ? Related Bloodstream Infection Clinician documentation instruction: use macro every time you place a central line. [] All elements of Maximal Sterile Barrier Technique, including hand hygiene, skin prep, and sterile ultrasound technique (if used) were followed. [SATISFIES MIPS PERFORMANCE] If Yes, Stop Here [] If ?No?, the medical reason all elements were NOT used for medical reason [] (ex. emergent condition). [] Maximal Sterile Barrier Technique was not followed, no reason provided [DOES NOT SATISFY MIPS PERFORMANCE] MIPS - DC Heart Failure Measures: #5 - Heart Failure (HF): Angiotensin-Converting Enzyme (LUIS) Inhibitor or Angiotensin Receptor Priscila (ARB) Therapy for Left Ventricular Systolic Dysfunction (LVSD) and #8 - Heart Failure (HF): Beta-Priscila Therapy for Left Ventricular Systolic Dysfunction (LVSD) Clinician documentation instruction: use macro at every CHF discharge. [] The patient has current or prior documentation of left ventricular ejection fraction (LVEF) less than 40%, or moderate or severely depressed left ventricular systolic function. Answer both: [SATISFIES MIPS PERFORMANCE] [] The patient was prescribed or already taking an Angiotensin-Converting Enzyme (LUIS) Inhibitor, or Angiotensin Receptor Priscila (ARB). [] The patient was prescribed or already taking a beta-priscila. If Yes to Both, Stop Here [] Patient not prescribed/taking: [MIPS PERFORMANCE EXCEPTION/EXCLUSION] [] LUIS or ARB for medical/patient/system reason(s) including [] (ex. allergy, intolerance, contraindication) [] Beta-priscila for medical/patient/system reason(s) including [] (ex. allergy, intolerance, contraindication) [] Patient not prescribed/taking: [DOES NOT SATISFY MIPS PERFORMANCE] [] LUIS or ARB, no reason given [] Beta-priscila, no reason given
--- NOTE | 2020-07-06 10:48 | CM.DANOTE ---
DCP: Case received, EMR reviewed and met with patient. Introduced self and role. Was able to obtain information from patient regarding his baseline activity status, as well as his current living situation prior to hospitalization. DCP assessment completed with information currently available. Patient is a 29 year old male who admitted yesterday afternoon to the care of the hospitalist/surgical team. PCP: [facility], has been assigned new provider, could not remember the name. Payer: confirmed: [facility]. Patient came to the hospital via private vehicle secondary to having left lower quadrant discomfort. Patient was diagnosed with cholecystitis. He had a laparoscopic cholecystectomy yesterday. Met with patient in his room. He was sitting up in his chair, pleasant. He resides in [place] with parents. He is independent at his baseline, he is employed at [email or web address], and works in [email or web address]. Asked him if he has a primary care provider, and he indicated that he has an appointment with a provider at [facility] after going to the walk in clinic to get established, but was unclear of the name. Patient also indicated that his father is at [facility], and could be released today. He stated that he also helps his grand parents, gets them set up for meals before he goes to work. Stated that his mother should be picking him up when he is ready for discharge. P: DCP to continue to follow. Plan is for home when he is deemed medically stable. Lisa Recio RN/[employer] Plant [employer]per
[2020-07-06] MEDS: OXYCODONE IR 10 MG TABLET PO ×4 (10:50→22:40)
[2020-07-06] MEDS: DOCUSATE 100 MG CAPSULE PO ×2 (14:09→20:32)
[2020-07-07 05:03] VITALS: BP 135/77; PULSE 70; RESP 18; TEMP 36.4; O2SAT 97
[2020-07-07] MEDS: OXYCODONE IR 10 MG TABLET PO (05:04)
[2020-07-07] MEDS: ACETAMINOPHEN 325 MG TABLET 650 MG PO ×2 (05:04→11:28)
[2020-07-07 05:27] LABS: Add Manual Diff / Slide Review NO; Basophils Absolute Auto 100 /uL (0-100); Basophils Percent Auto 0.7 % (0-2); Eosinophils Absolute Auto 100 /uL (0-450); Eosinophils Percent Auto 0.6 % (2-4); Hematocrit 36.2 % (41-53); Lymphocytes Absolute Auto 2500 /uL (1100-4500); Lymphocytes Percent Auto 24.2 % (25-40); Mean Corpuscular HGB Conc 33.3 % (30-36); Monocytes Absolute Auto 700 /uL (0-900); Monocytes Percent Auto 6.9 % (3-14); Neutrophils Absolute Auto 7000 /uL (1500-7000); Neutrophils Percent Auto 67.6 % (50-75); Platelet Count 217 X10^3/uL (150-400); Red Blood Cell Count 4.31 X10^6/uL (4.5-5.9); Red Cell Distribution Width 14.3 % (11.6-14.8); White Blood Cell Count 10.3 X10^3/uL (4.5-11.0)
[2020-07-07] MEDS: HEPARIN 5,000 UNIT/ML VIAL 5000 UNIT SUBCUT ×2 (06:27→13:50)
[2020-07-07] MEDS: HYDROMORPHONE 0.5 MG INJ IV (06:37)
[2020-07-07 08:00] VITALS: BP 135/71; PULSE 88; RESP 17; TEMP 36.3; O2SAT 97
[2020-07-07] MEDS: DOCUSATE 100 MG CAPSULE PO (08:42)
[2020-07-07] MEDS: SODIUM CHLORIDE 0.9% FLUSH 10 ML IV (08:42)
[2020-07-07] MEDS: polyethylene glycoL 3350 17 GM POWD.PACK PO (09:30)
[2020-07-07] MEDS: HYDROMORPHONE 2 MG TABLET PO ×2 (09:30→13:50)
--- NOTE | 2020-07-07 09:54 | P.PN_ITS ---
Subjective Subjective Date Patient Seen: 07/06/20 Time Patient Seen: 11:41 Interval history: Patient is still having a significant amount of pain in the epigastrium and right upper quadrant, has not been able to ambulate well without being limited by pain. Still requiring IV pain meds. Has not able to tolerate food without nausea or vomiting. Passing gas, but no stool. Exam Vital Signs (past 8 hours): - 07/07/20 05:03 07/07/20 08:00 Temperature 97.5 F L 97.3 F L Pulse Rate 70 88 Respiratory Rate 18 17 Blood Pressure 135/77 135/71 Pulse Oximetry 97 97 Oxygen Delivery Method Room Air Oxygen Flow Rate 0 Narrative Exam Narrative: GENERAL: Morbidly obese. Alert, mild distress due to pain and diaphoresis CARDIOVASCULAR: Regular rate. No pedal edema. RESPIRATORY: Non-tachypneic, breathing comfortably on room air. GASTROINTESTINAL: Abdomen soft and non-distended; appropriately tender to palpation; MAHI drain with clear, non bilious serosanguineous output; MAHI drain removed during exam GENITALURINARY: No flank tenderness. MUSCULOSKELETAL: Equal tone and mass bilaterally. NEURO: Alert and Oriented X 3. No gross sensory deficits, or cognitive issues. PSYCH: Appropriate affect and mood. Objective Labs Result Diagrams: 07/07/20 05:13 07/06/20 05:10 Labs: Laboratory Results - last 24 hr 07/07/20 05:13 WBC 10.3 RBC 4.31 L Hgb 12.0 L Hct 36.2 L MCV 84.0 MCH 28.0 MCHC 33.3 RDW 14.3 Plt Count 217 Neut % (Auto) 67.6 D Lymph % (Auto) 24.2 L [place] % (Auto) 6.9 Eos % (Auto) 0.6 L Baso % (Auto) 0.7 Neut # (Auto) 7000 Lymph # (Auto) 2500 [place] # (Auto) 700 Eos # (Auto) 100 Baso # (Auto) 100 [facility] Medical History Cholelithiasis Social History household members: family Smoking Status: Never smoker alcohol intake: current Assessment & Plan Assessment and plan (1) Status post cholecystectomy: Status: Acute (2) Morbid obesity with BMI of 45.0-49.9, adult: Status: Acute (3) Post-operative pain: Status: Acute (4) Cholelithiasis: Qualifiers: Biliary obstruction: without biliary obstruction Cholecystitis presence: without cholecystitis Cholelithiasis location: gallbladder Qualified Code(s): K80.20 - Calculus of gallbladder without cholecystitis without obs truction Status: Acute Assessment & Plan narrative: This is a 29-year-old man who is postop day 2 from a difficult cholecystectomy, with a deeply intrahepatic gallbladder. Although his pain meds were increased, they are not controlling his pain well. We will change to dilaudid PO, and remove the drain. We will increase his bowel regimen and encourage more ambulation. Once he is doing well enough without IV pain med s, he can be discharged. Plan: Encourage ambulation Change PO pain med PRN IV pain med if needed Dispo planning pending patient is able to ambulate well, and pain is controlled with p.o. pain meds COVID-19 COVID-19 status: Negative Result date/Date tested (Pos, Neg/Pending): 07/05/20 Time Spent With Patient Time with patient: 15-24 minutes Quality VTE Deep Vein Thrombosis/Pulmonary Embolism Present on Admission: No MIPS - Admit Advanced Care Plan / Current Medications Measures: #47 ? Advanced Care Plan Clinician documentation instruction: document at admission. [] I confirmed that the patient's Advance Care Plan is present, code status is documented, or surrogate decision maker is listed in the patient?s medical record. [SATISFIES MIPS PERFORMANCE] If Yes, Stop Here [] The patient?s Advance Care plan is not present because: (select) [MIPS PERFORMANCE EXCEPTION/EXCLUSION] [] I confirmed today that the patient does not wish or was not able to name a surrogate decision maker or provide an Advance Care Plan. [] Hospice care is currently being provided or has been provided this calendar year [] I did NOT confirm today the presence of an Advance Care Plan or surrogate decision maker documented within the patient's medical record. [DOES NOT SATISFY MIPS PERFORMANCE] #130 - Documentation of Current Medications in the Medical Record Clinician documentation instruction: use macro the first time you see a patient. [] I have utilized all available immediate resources to obtain, update, or review the patient?s current medications. [SATISFIES MIPS PERFORMANCE] If Yes, Stop Here [] The patient is not eligible for medication reconciliation; the patient is in an emergent medical situation where delaying treatment would jeopardize the patient?s health. [MIPS PERFORMANCE EXCEPTION/EXCLUSION] [] I did NOT confirm, update or review the patient's current list of medications today. [DOES NOT SATISFY MIPS PERFORMANCE] MIPS - CL Central Venous Catheter Placement Measure: #76 ? Prevention of Central Venous Catheter (CVC) ? Related Bloodstream Infection Clinician documentation instruction: use macro every time you place a central line. [] All elements of Maximal Sterile Barrier Technique, including hand hygiene, skin prep, and sterile ultrasound technique (if used) were followed. [SATISFIES MIPS PERFORMANCE] If Yes, Stop Here [] If ?No?, the medical reason all elements were NOT used for medical reason [] (ex. emergent condition). [] Maximal Sterile Barrier Technique was not followed, no reason provided [DOES NOT SATISFY MIPS PERFORMANCE] MIPS - DC Heart Failure Measures: #5 - Heart Failure (HF): Angiotensin-Converting Enzyme (LUIS) Inhibitor or Angiotensin Receptor Priscila (ARB) Therapy for Left Ventricular Systolic Dysfunction (LVSD) and #8 - Heart Failure (HF): Beta-Priscila Therapy for Left Ventricular Systolic Dysfunction (LVSD) Clinician documentation instruction: use macro at every CHF discharge. [] The patient has current or prior documentation of left ventricular ejection fraction (LVEF) less than 40%, or moderate or severely depressed left ventricular systolic function. Answer both: [SATISFIES MIPS PERFORMANCE] [] The patient was prescribed or already taking an Angiotensin-Converting Enzyme (LUIS) Inhibitor, or Angiotensin Receptor Priscila (ARB). [] The patient was prescribed or already taking a beta-priscila. If Yes to Both, Stop Here [] Patient not prescribed/taking: [MIPS PERFORMANCE EXCEPTION/EXCLUSION] [] LUIS or ARB for medical/patient/system reason(s) including [] (ex. allergy, intolerance, contraindication) [] Beta-priscila for medical/patient/system reason(s) including [] (ex. allergy, intolerance, contraindication) [] Patient not prescribed/taking: [DOES NOT SATISFY MIPS PERFORMANCE] [] LUIS or ARB, no reason given [] Beta-priscila, no reason given
[2020-07-07 12:00] VITALS: BP 133/72; PULSE 80; RESP 18; TEMP 36.7; O2SAT 97
--- NOTE | 2020-07-07 13:19 | PM.DS.1 ---
History of Present Illness History of Present Illness Chief complaint: stomach/gallbladder pain Narrative: This is a 29-year-old man with severe morbid obesity (BMI 48), who denies any other medical history. He says that he has had multiple episodes of severe right upper quadrant pain, usually self-limited, but sometimes requiring a trip to the ER. He has had ultrasounds in the past and knows he has gallstones. On this event, his right upper quadrant pain began after eating last night, and has not relented. He came into the ER had a right upper quadrant ultrasound which showed mobile gallstones, and no wall thickening or pericholecystic fluid. He has a normal white count with no left shift. His LFTs are normal. He denies any jaundice with any prior episodes, but says he has sometimes had fevers with these episodes. ROS: Right upper quadrant pain, radiating to the right upper back, denies nausea, denies fevers, denies jaundice, denies dysuria. Denies chest pain or shortness of breath. He does report some chest discomfort and shortness of breath with exertion. Thirteen system review is otherwise negative other than as mentioned below and in HPI. PE: GENERAL: Alert, comfortable, morbidly obese. Appears stated age. Answers questions promptly and appropriately. Vital signs noted. HENT: Normocephalic, atraumatic. Hearing intact. EYES: Conjunctiva pink, sclera white, no periorbital swelling. CARDIOVASCULAR: Regular rate. No pedal edema. RESPIRATORY: Non-tachypneic, breathing comfortably on room air. GASTROINTESTINAL: Abdomen soft and non-distended, obese, tender to palpation in the right upper quadrant GENITALURINARY: No flank tenderness. MUSCULOSKELETAL: Equal tone and mass bilaterally. SKIN: Warm, dry, soft, appropriate color for ethnicity. No other lesions, rashes, or wounds. NEURO: Alert and Oriented X 3. No gross sensory deficits, or cognitive issues. PSYCH: Appropriate affect and mood. Discharge Providers Provider Date of admission: 07/05/20 12:28 Discharge Date: 07/07/20 Discharge provider: Susana Crisostomo MD Summary Hospital Course Discharge Diagnosis: Acute on chronic cholelithiasis, symptomatic gallstones with intractable right upper quadrant pain Hospital Course: Cholecystectomy was performed an urgent fashion, the gallbladder is found to be deeply intrahepatic. Due to difficult operation and hypervascular association between the gallbladder and the liver, the patient was considered to be at high risk for postop bleeding. A MAHI drain was left. Pain was not well tolerated without IV pain medication, until today. The drain was removed today, the patient was switched to p.o. Dilaudid, which works better for his pain. Status at Discharge Cognitive/behavioral status at discharge: at baseline, oriented Functional status at discharge: independent ambulation Overall status at discharge: patient is progressing back to baseline Time Spent with Patient Time spent: Greater than 30 minutes Exam Vital Signs (past 8 hours): - 07/07/20 08:00 07/07/20 12:00 Temperature 97.3 F L 98.0 F Pulse Rate 88 80 Respiratory Rate 17 18 Blood Pressure 135/71 133/72 Pulse Oximetry 97 97 Oxygen Delivery Method Room Air Oxygen Flow Rate 0 Narrative Exam Narrative: GENERAL: Morbidly obese. Alert, mild distress due to pain and diaphoresis CARDIOVASCULAR: Regular rate. No pedal edema. RESPIRATORY: Non-tachypneic, breathing comfortably on room air. GASTROINTESTINAL: Abdomen soft and non-distended; appropriately tender to palpation; MAHI drain with clear, non bilious serosanguineous output; MAHI drain removed during exam GENITALURINARY: No flank tenderness. MUSCULOSKELETAL: Equal tone and mass bilaterally. NEURO: Alert and Oriented X 3. No gross sensory deficits, or cognitive issues. PSYCH: Appropriate affect and mood. Objective Labs Result Diagrams: 07/07/20 05:13 07/06/20 05:10 Labs: Laboratory Results - last 24 hr 07/07/20 05:13 WBC 10.3 RBC 4.31 L Hgb 12.0 L Hct 36.2 L MCV 84.0 MCH 28.0 MCHC 33.3 RDW 14.3 Plt Count 217 Neut % (Auto) 67.6 D Lymph % (Auto) 24.2 L Logan % (Auto) 6.9 Eos % (Auto) 0.6 L Baso % (Auto) 0.7 Neut # (Auto) 7000 Lymph # (Auto) 2500 Logan # (Auto) 700 Eos # (Auto) 100 Baso # (Auto) 100 [facility] Medical History Cholelithiasis Social History household members: family Smoking Status: Never smoker alcohol intake: current Discharge Assessment & Plan Assessment and Plan Assessment: Acute on chronic cholecystitis, cholelithiasis with intractable right upper quadrant pain. Doing better after cholecystectomy. Plan of Treatment: Continue pain med only as needed and stool softener to prevent constipation. Light activity is okay, and avoid heavy lifting/straining. Discharge Plan Discharge Plan Patient Disposition: Home Provider Discharge Comment: You had your gall bladder removed laparoscopically. You will be prescribed a narcotic pain medication. You may also use ibuprofen or Aleve as well as Tylenol/ Acetaminophen for pain after surgery. Make sure you do not take more than 3000 mg of Acetaminophen per day from any source. There may be Acetaminophen in your prescription pain medication, cold medications or headache remedies. Using an NSAID such as ibuprofen or Aleve will help with inflammation. Do not take more than recommended. You may take it along with or instead of your prescribed pain medication. Make sure to take the stool softener to prevent constipation from the narcotic pain medication. If you are not able have a bowel movement 24 hours after surgery, or you feel constipated please take an additional laxative such as MiraLax or Senna. Avoid any straining on the toilet. It is okay to shower, and get your incision sites wet. After showering pat them dry, and covered with a dressing if you prefer. Do not submerge the sites in a pool, tub, or hot tub for about 2 weeks. You will need to see Dr. Crisostomo back about 2 weeks after surgery to have your sachin removed and to discuss how you are doing. Avoid heavy lifting, pulling, or pushing more than 10 lbs or doing other activities that strain the abdomen or increase the abdominal pressure such as sit-ups, core work outs, and attempt to prevent frequent coughing. If you have fevers, jaundice, intractable nausea/vomiting, or intractable pain please call the doctor's office or if symptoms are severe come into the ER. If you call after hours please choose the option to contact the surgeon functional director rather than leaving a message. Discharge orders & Medications Prescriptions: New docusate sodium 100 mg capsule 100 mg PO BID Qty: 20 RF: 0 hydromorphone [Dilaudid] 2 mg tablet 2 mg PO Q4-6H PRN (Reason: post operative pain) Qty: 20 RF: 0 Follow up/Referrals: Susana Crisostomo MD [Physician] - (Please make an appointment to be seen by Dr. Crisostomo at the [facility] office within 2 weeks) Diet/Activity/Treatments Diet: Diet as Tolerated Activity: Avoid making important decisions, driving a car, operating heavy machinery while taking narcotic pain medication. Skin/Wound/Dressing Care Report to your healthcare provider any signs of infection, such as:: chills, fever, night sweats, increased pain, unusual drainage and unusual redness Visit Report/Discharge Packet Instructions: DI for Prescription Opioid Use, DI for Laparoscopic Cholecystectomy, [facility]: Wound Care Stand Alone Forms: Surgery Discharge Discharge Data Attending Provider: Susana Crisostomo Quality VTE Deep Vein Thrombosis/Pulmonary Embolism Present on Admission: No
--- NOTE | 2020-07-07 14:55 | PC.NURSE ---
Pt discharge education given to pt, discussed- medications and med safety, s/s of infection, worsening s/s, reasons to seek medical attention, s/s of stroke, wound care, and f/u appts. Pt expressed understanding, all questions answered. Belongings retrieved from safe, repossession consent signed and placed in pt chart. IV removed, intact, tolerated well. Pt dressed independently. All belongings packed and sent with pt. Pt left via w/c to mother's POV, accompanied by CLIENT TECHNICAL SPECIALIST.
--- NOTE | 2020-07-07 15:22 | CM.DPC ---
DCP Discharge Home Per Surgeon, pt's drain was able to be removed today and pain now better controlled and pt able to d/c home with oral pain medications today and no identified barriers to discharge. Per RN, no concerns at this time. Plan: Patient to d/c home today via sister POV and no SW needs at this time. RIGO Alexandre
== END 2020-07-07 14:58 | disposition home or self-care (01) ==
LOC: ED 12:16 → AC 12:29 → ICU 12:33 → AC 20:08
PROVIDERS: Admitting Provider Surgery; Emergency Provider Emergency Medicine; Referring Provider Emergency Medicine; Visit Provider Surgery
PROC: 0FT44ZZ Resection of Gallbladder, Percutaneous Endoscopic Approach (ICD-10-PCS; CPT 47562; principal; 2020-07-05 16:45)
DX: K80.12 Calculus of gallbladder with acute and chronic cholecystitis without obstruction (principal); G89.18 Other acute postprocedural pain; K66.0 Peritoneal adhesions (postprocedural) (postinfection); E66.01 Morbid (severe) obesity due to excess calories; Z68.42 Body mass index [BMI] 45.0-49.9, adult; Z20.822 Contact with and (suspected) exposure to COVID-19
CPT/HCPCS: 47563; 36415; 71045; 76705; 80053; 81001; 83690; 85025; 85610; 85730; 87635; 87797; 93005; 93010; 94762; 96361; 96365; 96372; 96375; 96376; 99219; 99284; G0378; J0330; J1100; J1170; J1644; J1885; J2250; J2270; J2405; J2543; J2704; J3010